=== PATIENT | female | born 1945 | race Caucasian/White ===

== ENCOUNTER 2018-04-09 14:12 | Inpatient (IN) | payer OTHER ==
[~2018-04-09] VITALS: Ht 157.5 cm; Wt 55.8 kg
[~2018-04-09 14:12] MED LIST: DURICEF 500 MG CAPSULE PO; TRAM1TAB98 PO
[2018-04-23] MEDS ORDERED: LEVO-T25 MCG PO (09:43)
[2018-04-23] MEDS ORDERED: ASA81 MG PO (09:44)
[2018-04-23] MEDS ORDERED: ATORVASTATIN CA20 MG PO (09:44)
[2018-04-23] MEDS ORDERED: VITAMIN D32000 UNI2 PO (09:44)
[2018-04-23] MEDS ORDERED: PROBIOTIC1 EAC4 PO (09:45)
[2018-05-04] MEDS ORDERED: OXYC1TAB9 PO (09:42)
[2018-05-04] MEDS ORDERED: HYOSCYAMINE0.125 M1 SL (09:42)
[2018-05-04] MEDS ORDERED: PROBIOTIC1 EAC4 PO (09:42)
== END 2018-05-04 12:05 | disposition home or self-care (01) | DRG 331 ==
LOC: SURH 05-01 07:15 → O/R 05-01 11:25 → SURH 05-01 17:30
PROVIDERS: ADMIT Surgery
PROC: 0DJD8ZZ Inspection of Lower Intestinal Tract, Via Natural or Artificial Opening Endoscopic (ICD-10-PCS; 2018-05-01)
PROC: 0DTN4ZZ Resection of Sigmoid Colon, Percutaneous Endoscopic Approach (ICD-10-PCS; principal; 2018-05-01 17:30)
DX: K57.20 Diverticulitis of large intestine with perforation and abscess without bleeding (principal); K66.0 Peritoneal adhesions (postprocedural) (postinfection); M17.11 Unilateral primary osteoarthritis, right knee